=== PATIENT | male | born 1950 | race Two or more races ===

== ENCOUNTER 2021-03-29 04:51 | Day surgery (SDC) | payer OTHER ==
[2021-03-27 15:58] VITALS: BMI 38.8
[2021-03-29 07:39] VITALS: TEMP 97.9
[2021-03-29 10:03] VITALS: BP 128/68; PULSE 91
== END 2021-03-29 09:45 | disposition home or self-care (01) ==
LOC: JASU-ENDO 04:51
PROVIDERS: ATTEND Internal Medicine Gastroenterology
PROC: 0DBQ8ZX Excision of Anus, Via Natural or Artificial Opening Endoscopic, Diagnostic (ICD-10-PCS; 2021-03-29)
PROC: 0DBP8ZX Excision of Rectum, Via Natural or Artificial Opening Endoscopic, Diagnostic (ICD-10-PCS; principal; 2021-03-29 08:09)
DX: Z12.11 Encounter for screening for malignant neoplasm of colon (principal); D12.9 Benign neoplasm of anus and anal canal; D12.8 Benign neoplasm of rectum; K59.00 Constipation, unspecified